=== PATIENT | female | born 1940 | race Caucasian/White ===

== ENCOUNTER 2020-08-28 18:27 | Emergency (ER) | payer MEDICARE, OTHER ==
--- NOTE | 2020-08-28 18:51 | ED ---
General Adult HPI - General Chief complaint: Fall Stated complaint: Shoulder Injury Time Seen by Provider: 08/28/20 18:40 Source: patient, EMS, RN notes reviewed Mode of arrival: EMS Limitations: no limitations - History of Present Illness Initial comments: Patient is a pleasant 80-year-old female presenting to the emergency Department with complaints of left arm injury. Patient states she was putting away groceries when she hit the table and fell onto her left upper arm. Patient had sudden discomfort of her left upper arm near the shoulder. Discomfort is greatly increased with any attempted movement. Patient did have been noted by EMS with improvement of symptoms. Discomfort remains. Patient did have some mild discomfort of her left lateral hip however that has resolved. Patient did stand up and take one step without difficulty. No neck or back pain. No chest pain or dyspnea. No abdominal pain. Patient lightly struck her left side of her head. No blood thinners. Patient did not lose consciousness. No headache. No vomiting. - Related Data Allergies Allergy/AdvReac Type Severity Reaction Status Date / Time No Known Allergies Allergy Verified 08/28/20 19:14 Review of Systems ROS Statement: Those systems with pertinent positive or pertinent negative responses have been documented in the HPI. ROS Other: All systems not noted in ROS Statement are negative. Constitutional: Denies: fever Eyes: Denies: eye pain ENT: Denies: ear pain Respiratory: Denies: cough Cardiovascular: Denies: chest pain Endocrine: Denies: fatigue Gastrointestinal: Denies: abdominal pain Genitourinary: Denies: urgency Musculoskeletal: Reports: as per HPI. Denies: back pain Skin: Denies: rash Neurological: Denies: headache, weakness, confusion Past Medical History Past Surgical History: Back Surgery Smoking Status: Never smoker Past Alcohol Use History: None Reported Past Drug Use History: None Reported General Exam Limitations: no limitations General appearance: alert, in no apparent distress Head exam: Present: atraumatic, normocephalic Eye exam: Present: normal appearance, PERRL, EOMI ENT exam: Present: normal oropharynx Neck exam: Present: normal inspection. Absent: tenderness Respiratory exam: Present: normal lung sounds bilaterally Cardiovascular Exam: Present: regular rate, normal rhythm Expanded Peripheral pulses: 2+: Radial (R), Radial (L), Dorsalis Pedis (R), Dorsalis Pe dis (L) GI/Abdominal exam: Present: soft. Absent: tenderness Extremities exam: Present: tenderness (Mild to moderate tenderness left proximal humerus.), other (Severe discomfort with attempted range of motion of left arm. Distally the extremity is neurovascularly intact. Good strength. Good sensation.) Back exam: Present: normal inspection. Absent: vertebral tenderness Neurological exam: Present: alert. Absent: motor sensory deficit Psychiatric exam: Present: normal affect, normal mood Skin exam: Present: normal color Course Vital Signs 08/28/20 18:44 Temperature 97.8 F Pulse Rate 81 Respiratory 14 Rate Blood Pressure 147/66 O2 Sat by Pulse 98 Oximetry Medical Decision Making - Medical Decision Making Patient evaluated. Patient and family updated. - Radiology Data Radiology results: image reviewed (X-ray left humerus shows comminuted humeral neck fracture. X-ray pelvis shows no acute process) Disposition Clinical Impression: Fracture of neck of humerus Disposition: HOME SELF-CARE Condition: Stable Instructions (If sedation given, give patient instructions): Arm Fracture in Adults (ED) Additional Instructions: Please follow-up with orthopedics in the next day or 2, number provided. Return for uncontrolled pain or swelling, hand problems, worsening symptoms or other concerns. Is patient prescribed a controlled substance at d/c from ED?: No Referrals: Dav Vidal MD [STAFF PHYSICIAN] - 1-2 days Elsa Khoury MD [STAFF PHYSICIAN] - 1-2 days
--- NOTE | 2020-08-28 19:14 | XR ---
EXAMINATION TYPE: XR pelvis AP view DATE OF EXAM: 08/28/2020 COMPARISON: NONE HISTORY: Shoulder pain TECHNIQUE: Single view FINDINGS: Pelvic ring is intact. There is acetabular spurring. The proximal femurs are intact. Sacroi liac joints are intact. IMPRESSION: No acute abnormality of the pelvis. No fracture seen. Acetabular spurring noted. No signi ficant hip joint space narrowing.
--- NOTE | 2020-08-28 19:15 | XR ---
EXAMINATION TYPE: XR humerus LT DATE OF EXAM: 08/28/2020 COMPARISON: NONE HISTORY: Shoulder pain TECHNIQUE: Single view FINDINGS: There is impacted comminuted humeral neck fracture. There is displacement of the fragments up to 1 cm. There is no dislocation at the glenohumeral joint. The elbow joint is not well evaluated. IMPRESSION: Comminuted humeral neck fracture. No dislocation.
[2020-08-28] MEDS ORDERED: HYDROmorphone 1 MG/ML 1 ML SYRINGE IVP STA (19:19)
[2020-08-28] MEDS ORDERED: traMADol 50 MG STARTER PACK 3 TAB BTL PO STA (19:23)
[2020-08-28 20:27] VITALS: BP 120/65; PULSE 89; RESP 20; TEMP 99.1
== END 2020-08-28 20:27 | disposition home or self-care (01) ==
LOC: EC 18:27
DX: S42.212A Unspecified displaced fracture of surgical neck of left humerus, initial encounter for closed fracture (principal); W18.09XA Striking against other object with subsequent fall, initial encounter; Y92.512 Supermarket, store or market as the place of occurrence of the external cause
CPT/HCPCS: 72170; 73060; 99283; 96374; J1170

== ENCOUNTER → 2020-08-31 | Outpatient (CLI) | payer MEDICARE, OTHER ==
[2020-08-31 14:48] LABS: Basophils % (A) 0 %; Eosinophils # (A) 0.1 k/uL (0-0.7); Eosinophils % (A) 1 %; HCT 31.6 % (34.0-46.0); HGB 10.4 gm/dL (11.4-16.0); Lymphocytes # (A) 1.8 k/uL (1.0-4.8); Lymphocytes % (A) 23 %; MCH 29.1 pg (25.0-35.0); MCHC 33.1 g/dL (31.0-37.0); MCV 87.9 fL (80.0-100.0); Mean Platelet Volume 8.1; Monocytes # (A) 0.5 k/uL (0-1.0); Monocytes % (A) 7 %; Neutrophils # (A) 5.3 k/uL (1.3-7.7); Neutrophils % (A) 67 %; Platelet Count 184 k/uL (150-450); RBC 3.59 m/uL (3.80-5.40); RDW 14.5 % (11.5-15.5); WBC 7.9 k/uL (3.8-10.6)
[2020-08-31 14:56] LABS: INR 0.9 (<1.2); Prothrombin Time 9.7 sec (9.0-12.0)
== END | disposition home or self-care (01) ==
LOC: LABPAT 13:05
PROVIDERS: ATTEND Orthopaedic Surgery
DX: Z01.818 Encounter for other preprocedural examination (principal); Z01.812 Encounter for preprocedural laboratory examination; S42.241D 4-part fracture of surgical neck of right humerus, subsequent encounter for fracture with routine healing
CPT/HCPCS: 36415; 80051; 85025; 85610; 87070; 93005

== ENCOUNTER 2020-09-05 13:58 | Inpatient (IN) | payer MEDICARE, OTHER ==
[2020-09-04 08:45] VITALS: BMI 30.7
--- NOTE | 2020-09-04 11:45 | HP ---
HISTORY AND PHYSICAL CHIEF COMPLAINT: Left shoulder pain. HISTORY OF PRESENT ILLNESS: Patient is a 80-year-old, right-hand dominant, retired female who presents with left shoulder pain after an injury on 08/28/2020. She fell getting out of her car getting, going into her house on her left side. Initially, she was seen in the emergency room and placed in a sling. PAST MEDICAL HISTORY: Significant for arthritis. PAST SURGICAL HISTORY: Significant for cataract removal along with lumbar spine surgery. CURRENT MEDICATIONS: Hydrocodone, cyclobenzaprine. She denies drug allergies. FAMILY HISTORY: Negative. SOCIAL HISTORY: Significant for social alcohol use. 16 POINT REVIEW OF SYSTEMS: Otherwise reviewed and is noncontributory. PHYSICAL EXAMINATION: On examination, the patient is approximately 5 foot 2, 168 pounds of mesomorphic habitus. HEENT: Exam is nonfocal. NECK: Supple. Examination of the left shoulder. She is tender about the proximal humerus. She has moderate anterior swelling. She is nontender about the acromioclavicular and sternoclavicular joints. She is nontender about the left elbow and wrist. Her distal neurovascular appears intact in the left upper extremity. X-rays of the left shoulder obtained in the office show displaced 4 part proximal humerus fracture. IMPRESSION: 1. Left displaced 4-part proximal humerus fracture. 2. 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 RECOMMENDATIONS: I talked to the patient at length regarding her condition and along with treatment options. At this point, she opts to proceed with surgery. We will plan to proceed with reverse left total shoulder arthroplasty. Risks and benefits were discussed at length in layman's terms. MMODL / IJN: [id number] /
[~2020-09-05 13:58] MED LIST: ACETAMINOPHEN TAB 500 MG TAB PO ONE; DEXAMETHASONE SOD PHOSPHATE 10 MG/ML 1 ML VIAL IV ONE; HYDROmorphone 0.5 MG/0.5 ML SYRINGE IVP PRN; LIDOCAINE 1% (10MG/ML) FOR IV START INTRADERMA PRN; MELOXICAM 7.5 MG TAB PO ONE; MIDAZOLAM 2 MG/2 ML VIAL IV PRN; ONDANSETRON 4 MG/2 ML VIAL IVP ONE; TRANEXAMIC ACID 1,000 MG in SODIUM CHLORIDE 0.9% 100 ML IVPB ONE
[2020-09-05] MEDS ORDERED: ONDANSETRON 4 MG/2 ML VIAL ONE (14:49)
[2020-09-05] MEDS: LACTATED RINGERS 1,000 ML IV SCH (14:58)
[2020-09-05] MEDS ORDERED: MIDAZOLAM 2 MG/2 ML VIAL IVP ONE (15:05)
--- NOTE | 2020-09-05 15:23 | P.ANPRN ---
Procedure Note - Anesthesia - Nerve Block Performed Left Interscalene Single Time Out Performed: Yes (1504) Date of Procedure: 09/05/20 Procedure Start Time: 15:05 Procedure Stop Time: 15:12 Location of Patient: PreOp Indication: Acute Post-Operative Pain, Analgesia, Requested by Surgeon Specifically requested for management of pain by : Dav Vidal Sedation Type: Sedate with meaningful contact maintained Preparation: Sterile Prep Position: Supine Catheter: None Needle Types: Pajunk Needle Gauge: 20 Ultrasound used to visualize needle placement: Yes Ultrasound used to observe medication spread: Yes Injectate: 0.5% Ropivacaine (see comment for volume) (20 mL ropivacaine 0.5% and 10 mg decadron) Blood Aspirated: No Pain Paresthesia on Injection Noted: No Resistance on Injection: Normal Image Stored and Saved: Yes Events: Uneventful and Well Tolerated
[2020-09-05] MEDS ORDERED: PROPOFOL 10 MG/ML 20 ML VIAL IV ONE ×2 (15:37)
[2020-09-05] MEDS ORDERED: SODIUM CHLORIDE 0.9% 100 ML BAG ONE ×2 (15:37)
[2020-09-05] MEDS ORDERED: LIDOCAINE 1% INJ 10MG/ML (20 ML MDV) ONE ×2 (15:37)
[2020-09-05] MEDS ORDERED: ROPIVACAINE 5 MG/ML 30 ML VIAL ONE ×2 (15:37)
[2020-09-05] MEDS ORDERED: ROCURONIUM 10 MG/ML (10 ML VIAL) IV ONE ×2 (15:37)
[2020-09-05] MEDS ORDERED: TRANEXAMIC ACID 1,000 MG/10 ML VIAL ONE ×2 (15:37)
[2020-09-05] MEDS ORDERED: fentaNYL (PF) 50 MCG/ML 2 ML AMP ONE ×2 (15:37)
[2020-09-05] MEDS ORDERED: DEXAMETHASONE SOD PHOSPHATE 10 MG/ML 1 ML VIAL ONE ×2 (15:37)
[2020-09-05] MEDS ORDERED: NEOSTIGMINE 1 MG/ML 10 ML VIAL ONE ×2 (15:37)
[2020-09-05] MEDS ORDERED: SUCCINYLCHOLINE CHLORIDE 100 MG/5 ML SYR IV ONE ×2 (15:37)
[2020-09-05] MEDS ORDERED: GLYCOPYRROLATE 0.2 MG/ML 2 ML VIAL ONE ×2 (15:37)
[2020-09-05] MEDS ORDERED: ONDANSETRON 4 MG/2 ML VIAL IVP PRN (17:35)
[2020-09-05] MEDS ORDERED: HYDROmorphone 0.5 MG/0.5 ML SYRINGE IVP PRN (17:35)
[2020-09-05] MEDS ORDERED: HYDROcodone/APAP 5-325MG 1 EACH TAB PO PRN (17:35)
[2020-09-05] MEDS ORDERED: ACETAMINOPHEN TAB 325 MG TAB PO PRN (17:37)
--- NOTE | 2020-09-05 18:03 | P.OP ---
Date of Procedure: 09/05/20 Preoperative Diagnosis: Displaced left 4 part proximal humerus fracture Postoperative Diagnosis: Same Procedure(s) Performed: Left reverse total shoulder arthroplastycemented Implants: Depuy Delta Xtend size 10 cemented long humeral stem with size 1 epiphysis, 38+3 articular surface, 38 mm glenosphere with +10 baseplate. Anesthesia: allyson BROWN Surgeon: Dav Vidal Instructor Psychiatric Aide #1: Devan Parekh Estimated Blood Loss (ml): 100 Pathology: other (Humeral head) Condition: stable Disposition: PACU Indications for Procedure: The patient is a 80-year-old female who presents after falling injuring her left shoulder. Upon evaluation she was noted have a displaced four-part proximal humerus fracture. A discussion of the risks and benefits of operative intervention versus conservative measures was made patient and her family. Operative procedure with surgery. Operative options were discussed including open reduction and internal fixation versus hemiarthroplasty versus reversed total shoulder arthroplasty. The opted to proceed with reverse total shoulder arthroplasty. Specific risks of surgery to include infection, neurovascular injury, development of blood clots, possible instability, possible need for subsequent procedures was discussed. Informed consent was obtained. Operative Findings: As below Description of Procedure: The patient was brought to the operating room, and after induction of general anesthesia was placed in a beachchair position. The bony prominences were appropriately padded. The left upper extremity was prepped and draped in normal fashion. A deltopectoral incision was then made starting just lateral to the coracoid process extending approximately 12 cm. Skin was incised sharply. Subcu tissues were divided bluntly. Electrocautery was used for hemostasis. The cephalic vein was identified and retracted gently laterally with the deltoid. Subdeltoid adhesions were bluntly dissected. A self-retaining retractor was placed. The upper one third of the pectoralis major was released to facilitate exposure. The clavipectoral fascia was opened and the retractor was placed under that. The biceps was identified and tenotomized and allowed to retract distally. The greater and lesser tuberosities were with an osteotome. The head was extracted. The tuberosities were tagged with #2 Ethibond suture. Attention was then paid towards the glenoid. I planned on a glenosphere being slightly inferior and tilting inferiorly. A guidepin was inserted. The glenoid was then reamed down to bleeding bony surface. The central peg hole was drilled. The standard +10 baseplate was inserted. The superior, inferior, and posterior locking screws were placed of the appropriate length. Good purchase obtained. I felt there is adequate fixation at this point. The 38 mm glenosphere was inserted over guidewire and was fully seated. Attention was then paid towards preparing the proximal humerus. The humeral canal was hand reamed to 8 mm. The alignment jig was attached the proximal humerus planning approximately 20 of retroversion. The trial size 8 long humeral stem was placed at the estimated height. A 30 mm +3 articular surface was placed. The shoulder was gently reduced. It was taken through range of motion. I felt that adequate episcopal of soft tissue tension judging off the conjoined tendon. I was stable in flexion and extension with internal and external rotation. The shoulder was gently dislocated and trial components were removed. The final humeral stem was inserted approximately 20 of retroversion again at the estimated appropriate height. After this had sufficiently hardened, trial reduction was again obtained with a 38+3 metaglene. The shoulder was again taken through range of motion and was felt to be stable in flexion and extension with internal and external rotation. Again I felt there is adequate episcopal of soft tissue tension. The shoulder was dislocated and the trial component was removed. The final 38+3 articular surface was placed and was fully seated. The shoulder again gently reduced. Pulsatile lavage was utilized. The tuberosities were repaired to each other with #2 Ethibond suture. I didn't have much drainage at this point therefore a deep drain was not placed. The subcutaneous tissues were reapproximated interrupted 2-0 Vicryl sutures. The skin was reapproximated with 3-0 subcuticular Prolene suture. Steri-Strips were applied. A sterile dressing was applied in addition to a sling. The patient was then awoken from general anesthesia and transferred to recovery room in fair condition. Blood loss was estimated at 100 mL. No complications were incurred. Sponge and needle counts were correct in the case.
[2020-09-05] MEDS ORDERED: LACTATED RINGERS 1,000 ML IV ONE (18:48)
--- NOTE | 2020-09-05 19:36 | XR ---
EXAMINATION TYPE: XR shoulder limited LT DATE OF EXAM: 09/05/2020 CLINICAL HISTORY: Postoperative left shoulder. TECHNIQUE: Single AP view of the left shoulder. COMPARISON: 08/28/2020 FINDINGS: There are interval postsurgical changes of left reverse shoulder arthroplasty for treatment of prior proximal humeral fracture. No evidence of intermediate to hardware complication on this limited singl e view. IMPRESSION: As above.
--- NOTE | 2020-09-06 00:34 | P.CONS ---
History of Present Illness - Reason for Consult Consult date: 09/05/20 medical management Requesting physician: Dav Vidal - Chief Complaint left humerous fracture - History of Present Illness 80 year old female with no significant past medical history she sustained accidental mechanical fall in her Garage about a week ago, resulting in left arm fracture. she is scheduled today for left total shoulder arthroplasty she tolerated procedure well, denies any chest pain or trouble breathing, denies any fever chills, denies any nausea or vomiting, she tolerated PO intake. she is reporting some numbness over her left hand since surgery, however it is clearing now, she is able to move her fingers in the left hand but unable to lift her hand. pain is well controlled Review of Systems Pertinent positives as noted in HPI. All other systems were reviewed and are negative Past Medical History Past Medical History: Osteoarthritis (OA) History of Any Multi-Drug Resistant Organisms: None Reported Past Surgical History: Back Surgery Past Anesthesia/Blood Transfusion Reactions: No Reported Reaction Past Psychological History: No Psychological Hx Reported Smoking Status: Former smoker Past Alcohol Use History: None Reported Additional Past Alcohol Use History / Comment(s): Quit smoking 25 yrs ago, smoked 4 -5 cigarettes daily, on and off for 10 yrs. Past Drug Use History: None Reported - Past Family History Sister(s) Family Medical History: Cancer Additional Family Medical History / Comment(s): Cervical Cancer. Medications and Allergies Home Medications Medication Instructions Recorded Confirmed Type Cyclobenzaprine HCl 5 mg PO TID PRN 09/04/20 09/04/20 History HYDROcodone/APAP 5-325MG [[place] 1 tab PO Q4HR PRN 09/04/20 09/04/20 History 5-325] Allergies Allergy/AdvReac Type Severity Reaction Status Date / Time No Known Allergies Allergy Verified 09/05/20 14:21 Physical Exam Vitals: Vital Signs Temp Pulse Pulse Resp BP Pulse Ox 09/05/20 23:55 18 09/05/20 20:00 89 18 09/05/20 19:10 98.0 F 89 120/68 93 L 09/05/20 18:46 87 18 123/64 93 L 09/05/20 18:30 83 16 124/62 96 09/05/20 18:12 93 18 124/61 93 L 09/05/20 17:55 97 F L 85 14 129/67 97 09/05/20 15:16 88 16 113/58 100 09/05/20 14:23 97.9 F 97 16 126/71 100 Intake and Output 09/05/20 09/05/20 09/06/20 14:59 22:59 06:59 Intake Total 500 550 Output Total 350 Balance 500 200 Intake: IV 500 550 Output: Urine 250 Estimated Blood Loss 100 Other: Voiding Method Toilet Toilet # Voids 2 Weight 79.7 kg Constitutional: No acute distress, conversant, pleasant Eyes: Anicteric sclerae, moist conjunctiva, Pupils equal round reactive to light ENMT: NC/AT Oropharynx clear, no erythema, or exudates Neck: Supple, FROM, no masses, or JVD No carotid bruits No thyromegaly Lungs: Clear to auscultation Clear to percussion Normal respiratory effort, no accessory muscle use Cardiovascular: Heart regular in rate and rhythm, No murmurs, gallops, or rubs No peripheral edema Abdominal: Soft Nontender, no guarding, rebound or rigidity Abdomen moving with respiration Normoactive bowel sounds No hepatomegaly, No splenomegaly No palpable mass No abdominal wall hernia noted Skin: Normal temperature, tone, texture, turgor No induration No subcutaneous nodules No rash, lesions No ulcers Extremities: left upper extremity in surgical dressing over left shoulder, looks dry intact and clean, her exposed part of the left forearm and hand has purple disocloration , warm to the touch, patient able to move her fingers but unable to lift her hand, or move at the elbow or shoulder, capillary refill immediate, No digital cyanosis No clubbing Pedal pulses intact and symmetrical Radial pulses intact and symmetrical No calf tenderness Psychiatric: Alert and oriented to person, place and time Appropriate affect fair judgement Neuro Muscles Strength 4/5 in right upper extremity and bilateral lower extremity Sensation to light touch grossly present throughout Cranial nerves II-XII grossly intact No focal sensory deficits Lymphatics: no palpable cervical or supraclavicular , or inguinal lymph nodes Assessment and Plan Assessment: left total shoulder arthroplasty 2/2 accidental humerus fracture 2/2 falling pain control and DVT ppx per louver door assembler notified regarding numbness in patient hand and unable to move her left UE. RN indicated that patient just came out of surgery and that she had nerve block monitor vital sings check CBC and CMP in AM Full code Thank you for allowing us to participate in the care of this patient. Do not hesitate to contact us with questions. Someone can be reached from the [facility] hospitalist group at all hours of the day at [phone].
[2020-09-06] MEDS: LACTATED RINGERS 1,000 ML IV SCH (06:56)
[2020-09-06] MEDS: ASPIRIN 325 MG TAB PO SCH (07:12)
[2020-09-06 07:14] LABS: Basophils % (A) 0 %; Eosinophils % (A) 0 %; HCT 26.9 % (34.0-46.0); Hypochromasia Slight; Lymphocytes # (A) 0.9 k/uL (1.0-4.8); Lymphocytes % (A) 11 %; MCH 28.9 pg (25.0-35.0); MCHC 31.9 g/dL (31.0-37.0); MCV 90.5 fL (80.0-100.0); Mean Platelet Volume 7.7; Monocytes # (A) 0.4 k/uL (0-1.0); Monocytes % (A) 4 %; Neutrophils # (A) 7.5 k/uL (1.3-7.7); Neutrophils % (A) 85 %; Platelet Count 232 k/uL (150-450); RBC 2.98 m/uL (3.80-5.40); RDW 15.6 % (11.5-15.5); WBC 8.9 k/uL (3.8-10.6)
[2020-09-06 07:17] LABS: HGB 8.6 gm/dL (11.4-16.0)
[2020-09-06] MEDS: HYDROcodone/APAP 5-325MG 1 EACH TAB PO PRN ×3 (08:57→20:18)
[2020-09-06 09:22] LABS: African American GFR (CKD) 96.2 (60.0-200.0); Albumin 3.6 g/dL (3.80-4.90); Albumin/Globulin Ratio 2.12 (1.60-3.17); Anion Gap 8.4 mmol/L (4.00-12.00); BUN/Creat Ratio 25.71 Ratio (12.00-20.00); Calcium 8.7 mg/dL (8.7-10.3); Carbon Dioxide 25.6 mmol/L (21.6-31.8); Globulin 1.7 g/dL (1.6-3.3); Potassium 4.5 mmol/L (3.5-5.5); Total Bilirubin 0.4 mg/dL (0.3-1.2); Total Protein 5.3 g/dL (6.2-8.2)
--- NOTE | 2020-09-06 10:22 | P.PN ---
Subjective Progress Note Date: 09/06/20 Patient is doing well today. Pain is well controlled. Objective - Vital Signs Vital signs: Vital Signs Temp 98.0 F 09/06/20 07:00 Pulse 90 09/06/20 07:00 Resp 17 09/06/20 07:00 BP 118/72 09/06/20 07:00 Pulse Ox 94 L 09/06/20 07:00 Intake & Output 09/05/20 09/06/20 09/06/20 18:59 06:59 18:59 Intake Total 1050 Output Total 100 250 Balance 950 -250 Weight 79.7 kg Intake: IV 1050 Output: Urine 250 Estimated Blood Loss 100 Other: Voiding Method Toilet # Voids 1 - Exam General: The patient is awake and alert, in no distress Eye: there is normal conjunctiva bilaterally. Neck: The neck is supple, there is no JVD. Cardiovascular: Normal S1-S2, no S3-S4, no murmurs. Respiratory: Lungs clear to auscultation bilaterally Gastrointestinal: Abdomen is soft, nontender Musculoskeletal: There is no pedal edema. Left arm a large sliding Neurological:. Speech is normal. Skin: Skin is warm and dry - Labs CBC & Chem 7: 09/06/20 06:17 09/06/20 06:17 Labs: Abnormal Lab Results - Last 24 Hours (Table) 09/06/20 09/06/20 Range/Units 06:17 06:17 RBC 2.98 L (3.80-5.40) m/uL Hgb 8.6 L D (11.4-16.0) gm/dL Hct 26.9 L (34.0-46.0) % RDW 15.6 H (11.5-15.5) % Lymphocytes # 0.9 L (1.0-4.8) k/uL BUN/Creatinine Ratio 25.71 H (12.00-20.00) Ratio Glucose 126 H (70-110) mg/dL Total Protein 5.3 L (6.2-8.2) g/dL Albumin 3.60 L (3.80-4.90) g/dL Assessment and Plan Assessment: This is a 80-year-old female with no significant past medical history currently admitted to the hospital for further management of her medical problems noted below: left total shoulder arthroplasty 2/2 accidental humerus fracture 2/2 falling pain control and DVT ppx per orthopedic Today, I reviewed her lab work results. Patient will need a repeat CBC in the next 5-7 days. May require further workup for worsening anemia as an outpatient
--- NOTE | 2020-09-06 11:06 | P.PN ---
Subjective Progress Note Date: 09/06/20 Principal diagnosis: Status post reverse left total shoulder arthroplasty cemented Patient was evaluated today at bedside, she is resting comfortably. She's been up ambulating to the bathroom. Pain is controlled. She's utilizing the arm sling. She denies any headaches, lightheadedness, chest pain, shortness of breath, fever or chills Objective - Vital Signs Vital signs: Vital Signs Temp 98.0 F 09/06/20 07:00 Pulse 90 09/06/20 07:00 Resp 17 09/06/20 07:00 BP 118/72 09/06/20 07:00 Pulse Ox 94 L 09/06/20 07:00 Intake & Output 09/05/20 09/06/20 09/06/20 18:59 06:59 18:59 Intake Total 1050 Output Total 100 250 Balance 950 -250 Weight 79.7 kg Intake: IV 1050 Output: Urine 250 Estimated Blood Loss 100 Other: Voiding Method Toilet # Voids 1 - Exam Left upper extremity: Postoperative bandages in good position and condition, no active drainage. Bruising or ecchymosis noted throughout the upper extremity. Sensory exam to light touch throughout the extremities intact. Flexion and extension are intact at the elbow, hand and wrist. Radial pulses 2+ - Labs CBC & Chem 7: 09/06/20 06:17 09/06/20 06:17 Labs: Abnormal Lab Results - Last 24 Hours (Table) 09/06/20 09/06/20 Range/Units 06:17 06:17 RBC 2.98 L (3.80-5.40) m/uL Hgb 8.6 L D (11.4-16.0) gm/dL Hct 26.9 L (34.0-46.0) % RDW 15.6 H (11.5-15.5) % Lymphocytes # 0.9 L (1.0-4.8) k/uL BUN/Creatinine Ratio 25.71 H (12.00-20.00) Ratio Glucose 126 H (70-110) mg/dL Total Protein 5.3 L (6.2-8.2) g/dL Albumin 3.60 L (3.80-4.90) g/dL Assessment and Plan Assessment: Status post left reverse total shoulder arthroplasty cemented Acute blood loss anemia, expected surgical outcome Plan: Pain control, continue current medication DVT prophylaxis, continue aspirin 325 mg daily Continue use of arm sling We'll check CBC later this afternoon, possible transfusion if below 8 Will begin ferrous sulfate 325 mg twice a day Medical recommendations Plan for discharge home tomorrow Time with Patient: Less than 30
[2020-09-06 14:40] VITALS: RESP 18
[2020-09-07] MEDS: HYDROcodone/APAP 5-325MG 1 EACH TAB PO PRN ×2 (05:34→13:50)
[2020-09-07] MEDS: LACTATED RINGERS 1,000 ML IV SCH (06:21)
[2020-09-07 08:28] VITALS: BP 133/80; PULSE 84; TEMP 98.1
[2020-09-07] MEDS: ASPIRIN 325 MG TAB PO SCH (08:52)
[2020-09-07 08:55] LABS: Basophils % (A) 0 %; Eosinophils # (A) 0.1 k/uL (0-0.7); Eosinophils % (A) 1 %; HCT 27.1 % (34.0-46.0); HGB 8.6 gm/dL (11.4-16.0); Hypochromasia Moderate; Lymphocytes % (A) 25 %; MCH 28.8 pg (25.0-35.0); MCHC 31.5 g/dL (31.0-37.0); MCV 91.3 fL (80.0-100.0); Monocytes # (A) 0.5 k/uL (0-1.0); Monocytes % (A) 6 %; Neutrophils # (A) 5.4 k/uL (1.3-7.7); Neutrophils % (A) 66 %; Platelet Count 244 k/uL (150-450); RBC 2.97 m/uL (3.80-5.40); RDW 15.7 % (11.5-15.5); WBC 8.1 k/uL (3.8-10.6)
--- NOTE | 2020-09-07 10:53 | P.PN ---
Subjective Progress Note Date: 09/07/20 Principal diagnosis: Status post reverse left total shoulder arthroplasty cemented Patient was evaluated today at bedside, she is resting comfortably. She's been up ambulating to the bathroom. Pain is controlled. She's utilizing the arm sling. She denies any headaches, lightheadedness, chest pain, shortness of breath, fever or chills Objective - Vital Signs Vital signs: Vital Signs Temp 98.1 F 09/07/20 07:00 Pulse 84 09/07/20 07:00 Resp 18 09/07/20 07:00 BP 133/80 09/07/20 07:00 Pulse Ox 93 L 09/07/20 07:00 Intake & Output 09/06/20 09/07/20 09/07/20 18:59 06:59 18:59 Other: Voiding Method Toilet # Voids 3 1 - Exam Left upper extremity: Incision is clean, dry and intact. Bruising or ecchymosis noted throughout the upper extremity. Sensory exam to light touch throughout the extremities intact. Flexion and extension are intact at the elbow, hand and wrist. Radial pulses 2+ - Labs CBC & Chem 7: 09/07/20 08:21 09/06/20 06:17 Labs: Abnormal Lab Results - Last 24 Hours (Table) 09/07/20 Range/Units 08: RBC 2.97 L (3.80-5.40) m/uL Hgb 8.6 L (11.4-16.0) gm/dL Hct 27.1 L (34.0-46.0) % RDW 15.7 H (11.5-15.5) % Assessment and Plan Assessment: Status post left reverse total shoulder arthroplasty cemented Acute blood loss anemia, expected surgical outcome Plan: Pain control, plan for discharge home on [place] 5 mg/325 mg DVT prophylaxis, plan for discharge on aspirin 325 mg daily Continue use of arm sling Hemoglobin has remained stable, we'll discharge home on ferrous sulfate 325 mg twice a day Medical recommendations Plan for discharge home today Time with Patient: Less than 30
--- NOTE | 2020-09-07 10:57 | P.DS ---
Providers Date of admission: 09/05/20 13:58 Expected date of discharge: 09/07/20 Attending physician: Dav Vidal Primary care physician: Stated None Hospital Course: Date of admission: 09/05/2020 Date of discharge: 09/07/2020 Admission diagnosis: Status post reversed left total shoulder arthroplasty Discharge diagnosis: Same Attending physician: Dr. Vidal Surgical procedures: Reverse left total shoulder arthroplasty Brief history: Patient is a 80-year-old female with a history of a recent fall and injury to her left shoulder that resulted in a 4 part displaced proximal humerus fracture on the left. She was evaluated in the outpatient setting by Dr. Vidal, it was determined surgical fixation would be the best course of action, she was scheduled for reverse left total shoulder arthroplasty Hospital course: Details of patient's surgery can be found in operative report. Patient tolerated the procedure well and was subsequently transported to orthopedic floor. Patient's orthopeidc and medical care was provided daily. Patient had daily laboratory tests performed for evaluation of overall blood counts. Patient had daily physical therapy to include strengthening range of motion as well as education with walker ambulation. Patient was treated with Aspirin for their postoperative DVT prophylaxis during their inpatient stay. Patient was noted to have a relatively uneventful postoperative course. Patient reported satisfactory pain control with oral pain medications by postoperative day 0. Patient showed satisfactory progress with physical therapy. Patient moved steadily through the program and had no difficulty meeting the goals by postoperative day 2. Given patient's otherwise satisfactory course and having met physical therapy goals, plan is to discharge patient home on postoperative day 2. Discharge condition/disposition: Patient will be discharged home in stable condition. Discharge medications: Instructions are given on resumption of patient's normal daily medications per primary care recommendation, in addition patient will be prescribed [place] 5 mg/325 mg, Colace 100 mg, aspirin 325 mg, ferrous sulfate 325 mg. Discharge instructions: 1. Wound care and infection precautions, keep incision dry and covered while showering, no lotions, creams, moisturizers. No soaking, tubs, pools, hottubs. Do not scrub over the incision. 2. Utilize arm sling 3. Ice and elevate when necessary. Do not exceed 20 minutes per hour with ice pack. 4. Utilize compression sleeve until seen at first follow up appointment. 7. Pain meds and anticoagulants per prescription. 8. Pain medication has potential to cause constipation. Increase oral fluid and fiber intake. Contact primary care provider if you have not had a bowel movement within 48 hours after discharge 9. No anti-inflammatory medication until discussed at first post operative visit, this including Motrin, Aleve, Mobic, Diclofenac. 10. Follow up in office at 2 weeks postop with Eliseo Parekh PA-C 11. Follow up with your primary care doctor 7-10 days after discharge. 12. Contact [facility] with any questions, . Procedures: Reverse total shoulder arthroplasty Plan - Discharge Summary Discharge Rx Participant: Yes New Discharge Prescriptions: New Aspirin 325 mg PO DAILY #30 tab Docusate [Colace] 100 mg PO DAILY #30 capsule Ferrous Sulfate [Feosol] 325 mg PO BID #60 tab Hydrocodone/Acetaminophen [[place] 5-325] 1 - 2 each PO Q6HR PRN #42 tab PRN Reason: Pain No Action HYDROcodone/APAP 5-325MG [[place] 5-325] 1 tab PO Q4HR PRN PRN Reason: Pain Cyclobenzaprine HCl 5 mg PO TID PRN PRN Reason: Pain or Spasm Discharge Medication List Cyclobenzaprine HCl 5 mg PO TID PRN 09/04/20 [History] HYDROcodone/APAP 5-325MG [[place] 5-325] 1 tab PO Q4HR PRN 09/04/20 [History] Aspirin 325 mg PO DAILY #30 tab 09/07/20 [Rx] Docusate [Colace] 100 mg PO DAILY #30 capsule 09/07/20 [Rx] Ferrous Sulfate [Feosol] 325 mg PO BID #60 tab 09/07/20 [Rx] Hydrocodone/Acetaminophen [[place] 5-325] 1 - 2 each PO Q6HR PRN #42 tab 09/07/20 [Rx] Follow up Appointment(s)/Referral(s): [facility], [NON-STAFF] - As Needed Devan Parekh PAC [PHYSICIAN STATIONS SUPERINTENDENT] - 09/20/20 3:10 pm Activity/Diet/Wound Care/Special Instructions: Discharge instructions: 1. Resume home medications 2. Pain medication as needed 3. Aspirin 325 mg daily DVT prophylaxis 4. Keep incision dry and covered while showering 5. Utilize arm sling 6. Ice the shoulder often 7. Plan for follow-up at [facility] in 2 weeks Discharge Disposition: HOME WITH HOME HEALTH SERVICES
--- NOTE | 2020-09-08 10:45 | CDI ---
TDocumentation Clarification Form Date: 09/08/20 From: Ernestina Desai Phone: If you have a question about this query, please contact Savannah Recinos Tool Design Drafter at [phone] between 8am and 5pm. Admit Date: 09/05/20 Discharge Date:09/07/20 Patient Name: Shey Heredia Visit Number: [id number] ATTENTION: The Clinical Documentation Specialists (CDI) and [facility] Coding Staff appreciate your assistance in clarifying documentation. Please respond to the clarification below the line at the bottom and electronically sign. The CDI & [facility] Coding staff will review the response and follow-up if needed. Please note: Queries are made part of the Legal Health Record. If you have any questions, please contact the author of this message via ITS. Dear Dr. Vidal Patient has been diagnosed with a 4 part fracture of the proximal humerus. History/Risk Factors: Fall at home with injury, osteoporosis Clinical Indications: Left shoulder pain, moderate swelling X-Ray Results: X-ray in the office showed displaced 4 part proximal humerus fracture Treatment: Left reverse total shoulder arthroplasty In your professional opinion, please specify the following: Etiology of fracture: Traumatic Pathological (specify cause): Osteoporosis Other (please specify): Unable to determine traumatic MTDD
== END 2020-09-07 13:59 | disposition home health service (06) | DRG 483 ==
LOC: 2ORMAIN 13:58 → 4SSUR 17:59
PROVIDERS: ADMIT Orthopaedic Surgery; ATTEND Orthopaedic Surgery
PROC: 0RRK00Z Replacement of Left Shoulder Joint with Reverse Ball and Socket Synthetic Substitute, Open Approach (ICD-10-PCS; principal; 2020-09-05 15:35)
DX: S42.242A 4-part fracture of surgical neck of left humerus, initial encounter for closed fracture (principal); D62 Acute posthemorrhagic anemia; M19.90 Unspecified osteoarthritis, unspecified site; Z87.891 Personal history of nicotine dependence; Z98.49 Cataract extraction status, unspecified eye; Z98.890 Other specified postprocedural states; Z87.39 Personal history of other diseases of the musculoskeletal system and connective tissue; Z80.49 Family history of malignant neoplasm of other genital organs; V48.4XXA Person boarding or alighting a car injured in noncollision transport accident, initial encounter; Y92.015 Private garage of single-family (private) house as the place of occurrence of the external cause
CPT/HCPCS: 64415; 76942; 80053; 85025; 88300

== ENCOUNTER 2024-02-14 20:25 | Observation (INO) | payer MEDICARE, OTHER ==
[2024-02-14] MEDS: ACETAMINOPHEN TAB 500 MG TAB PO STA (20:42)
[2024-02-14] MEDS: SODIUM CHLORIDE 0.9% 1,000 ML IV STA ×2 (20:44→23:11)
[2024-02-14 20:51] LABS: Basophils % (A) 0 %; Eosinophils # (A) 0.1 k/uL (0-0.7); Eosinophils % (A) 2 %; HCT 36.4 % (34.0-46.0); HGB 12.3 gm/dL (11.4-16.0); Lymphocytes % (A) 13 %; MCH 31.2 pg (25.0-35.0); MCHC 33.7 g/dL (31.0-37.0); MCV 92.4 fL (80.0-100.0); Monocytes # (A) 0.5 k/uL (0-1.0); Monocytes % (A) 6 %; Neutrophils # (A) 6.4 k/uL (1.3-7.7); Neutrophils % (A) 79 %; Platelet Count 144 k/uL (150-450); RBC 3.93 m/uL (3.80-5.40); RDW 13.4 % (11.5-15.5); WBC 8.1 k/uL (3.8-10.6)
[2024-02-14 20:59] LABS: ALT 24 U/L (4-34); AST 23 U/L (14-36); African American GFR (CKD) >90 (>60 ml/min/1.73 sqM); Albumin 4.1 g/dL (3.5-5.0); Alkaline Phosphatase 80 U/L (38-126); Anion Gap 8 mmol/L; Blood Urea Nitrogen 15 mg/dL (7-17); Calcium 8.6 mg/dL (8.4-10.2); Carbon Dioxide 23 mmol/L (22-30); Chloride 109 mmol/L (98-107); Glucose 118 mg/dL (74-99); Magnesium 1.7 mg/dL (1.6-2.3); Non-African American GFR(CKD) 87 (>60 ml/min/1.73 sqM); Sodium 140 mmol/L (137-145); Total Bilirubin 0.5 mg/dL (0.2-1.3); Total Protein 7.1 g/dL (6.3-8.2)
[2024-02-14] MEDS: IBUPROFEN 800 MG TAB PO STA (21:01)
[2024-02-14 21:28] LABS: Partial Thromboplastin Time 24.6 sec (22.0-30.0); Prothrombin Time 10.7 sec (10.0-12.5)
--- NOTE | 2024-02-14 21:37 | ED ---
General Adult HPI - General Chief complaint: Weakness Stated complaint: Weakness and numbness in lower extremities Time Seen by Provider: 02/14/24 20:25 Source: patient, EMS, RN notes reviewed, old records reviewed Mode of arrival: EMS - History of Present Illness Initial comments: Patient is an 83-year-old female who presents emergency department complaining of weakness. States she woke up today with weakness. Also has had a cough for the last few days. Was taking a nap and woke up this afternoon after laying down at approximately 1 PM. She has been unable to walk due to weakness in bilateral legs since that time. Denies any focal deficits. Can still move the legs but just feels weak. No unilateral deficits. No sensory deficits. Productive cough. Patient is also febrile. Presents for further evaluation at this time. - Related Data Home Medications Medication Instructions Recorded Confirmed Cyclobenzaprine HCl 5 mg PO TID PRN 09/04/20 09/04/20 HYDROcodone/APAP 5-325MG [[place] 1 tab PO Q4HR PRN 09/04/20 09/04/20 5-325] Previous Rx's Medication Instructions Recorded Aspirin 325 mg PO DAILY #30 tab 09/07/20 Docusate [Colace] 100 mg PO DAILY #30 capsule 09/07/20 Ferrous Sulfate [Feosol] 325 mg PO BID #60 tab 09/07/20 Hydrocodone/Acetaminophen [[place] 1 - 2 each PO Q6HR PRN #42 tab 09/07/20 5-325] Allergies Allergy/AdvReac Type Severity Reaction Status Date / Time No Known Allergies Allergy Verified 09/05/20 14:21 Review of Systems ROS Statement: Those systems with pertinent positive or pertinent negative responses have been documented in the HPI. Review of Systems: CONST: Endorses fever EYES: Denies blurry vision ENT: Endorses nasal congestion C/V: Denies Chest pain RESP: Endorses cough GI: Denies abdominal pain : Denies dysuria SKIN: Denies rash. MSK: Denies joint pain. NEURO: Denies headache ROS Other: All systems not noted in ROS Statement are negative. Past Medical History Past Medical History: Osteoarthritis (OA) History of Any Multi-Drug Resistant Organisms: None Reported Past Surgical History: Back Surgery Past Anesthesia/Blood Transfusion Reactions: No Reported Reaction Past Psychological History: No Psychological Hx Reported Smoking Status: Former smoker Past Alcohol Use History: None Reported Past Drug Use History: None Reported - Past Family History Sister(s) Family Medical History: Cancer Additional Family Medical History / Comment(s): Cervical Cancer. General Exam - General Exam Comments Initial Comments: General: Appears in no acute distress. Febrile. HEAD: Normal with no signs of head trauma. EYES: PERRLA, EOMI, conjunctiva normal, no discharge. ENT: Hearing grossly intact, normal oropharynx. RESPIRATORY: Mildly coarse breath sounds bilaterally. No significant hypoxia. No significant increased work of breathing. C/V: Tachycardic.. S1 and S2 auscultated, no edema, peripheral pulses 2+ and intact throughout ABD: Abd is soft, nontender, nondistended EXT: Normal range of motion, no obvious deformity SKIN: No rashes or lesions observed on exposed skin. NEURO: Alert and oriented x 4. Cranial nerves II-XII intact. No focal sensory or strength deficits. Symmetrical lower extremity weakness. No focal deficits. NIH is 0. GCS of 15. Course Vital Signs 02/14/24 02/14/24 02/14/24 20:29 21:00 21:35 Temperature 102.1 F H 99.2 F Pulse Rate 103 H 92 Respiratory 19 19 Rate Blood Pressure 152/79 133/67 O2 Sat by Pulse 93 L 95 Oximetry Medical Decision Making - Medical Decision Making Was pt. sent in by a medical professional or institution (ROMELIA Cardenas, SENIOR DATA INTEGRATION DEVELOPER, urgent care, hospital, or skilled nursing...) When possible be specific @ -No Did you speak to anyone other than the patient for history (EMS, parent, family, police, friend...)? What history was obtained from this source @ -No Did you review nursing and triage notes (agree or disagree)? Why? @ -I reviewed and agree with nursing and triage notes Were old charts reviewed (outside hosp., previous admission, EMS record, old EKG, old radiological studies, urgent care reports/EKG's, skilled nursing records)? Report findings @ -Charts reviewed Differential Diagnosis (chest pain, altered mental status, abdominal pain women, abdominal pain men, vaginal bleeding, weakness, fever, dyspnea, syncope, headache, dizziness, GI bleed, back pain, seizure, CVA, palpatations, mental health, musculoskeletal)? @ -Differential Weakness: Hypoglycemia, shock, sepsis, hyponatremia, anemia, infection, MD, ETOH, adverse medicine reaction, overdose, stroke, this is not meant to be an all-inclusive list. EKG interpreted by me (3pts min.). @ -As above X-rays interpreted by me (1pt min.). @ -Chest x-ray shows no signs of acute cardiopulmonary process. CT interpreted by me (1pt min.). @ -None done U/S interpreted by me (1pt. min.). @ -None done What testing was considered but not performed or refused? (CT, X-rays, U/S, labs)? Why? @ -None What meds were considered but not given or refused? Why? @ -None Did you discuss the management of the patient with other professionals (professionals i.e. , PA, SENIOR DATA INTEGRATION DEVELOPER, lab, RT, psych nurse, social science analyst, local tanker truck driver, teacher, aadc plans staff officer, immigration case manager)? Give summary @ -I discussed the case with the admitting team, [facility]. Was smoking cessation discussed for >3mins.? @ -No Was critical care preformed (if so, how long)? @ -No Were there social determinants of health that impacted care today? How? (Homelessness, low income, unemployed, alcoholism, drug addiction, transportation, low edu. Level, literacy, decrease access to med. care, alf, rehab)? @ -No Was there de-escalation of care discussed even if they declined (Discuss DNR or withdrawal of care, Hospice)? DNR status @ -No What co-morbidities impacted this encounter? (DM, HTN, Smoking, COPD, CAD, Cancer, CVA, ARF, Chemo, Hep., AIDS, mental health diagnosis, sleep apnea, morbid obesity)? @ -None Was patient admitted / discharged? Hospital course, mention meds given and route, prescriptions, significant lab abnormalities, going to OR and other pertinent info. @ -Based on the patient's presentation and physical exam, presents with weakness, fever. We will obtain infectious labs. Vital signs are within acceptable limits other than fever and mild tachycardia. Patient be symptomatically treated with IV fluids, as well as Tylenol Motrin. Patient was in agreement this plan. EKG shows no signs of acute ischemia.Chest x-ray shows no signs of acute cardiopulmonary process. EKG shows no signs of acute ischemia. Patient's laboratory studies are remarkable for lactic acid that is within acceptable limits. Urinalysis unremarkable. Patient is COVID-positive. I did the patient at this time. Fevers improved. Due to her weakness which is improving as well as her febrile illness I did recommend admission for continued treatment of her fever as well as IV fluids. Patient was in agreement this plan. She will be empirically on a dose of Decadron for the COVID infection. I discussed the case with the admitting team, [facility]. Undiagnosed new problem with uncertain prognosis? @ -No Drug Therapy requiring intensive monitoring for toxicity (Heparin, Nitro, Insulin, Cardizem)? @ -No Were any procedures done? @ -No Diagnosis/symptom? @ -Weakness, COVID-19 infection Acute, or Chronic, or Acute on Chronic? @ -Acute Uncomplicated (without systemic symptoms) or Complicated (systemic symptoms)? @ -Complicated Side effects of treatment? @ -None Exacerbation, Progression, or Severe Exacerbation] @ -No Poses a threat to life or bodily function? @ -Yes - Lab Data Result diagrams: 02/14/24 20:29 02/14/24 20:29 Lab Results 02/14/24 02/14/24 02/14/24 Range/Units 20:29 20:29 20:29 WBC 8.1 (3.8-10.6) k/uL RBC 3.93 (3.80-5.40) m/uL Hgb 12.3 (11.4-16.0) gm/dL Hct 36.4 (34.0-46.0) % MCV 92.4 (80.0-100.0) fL MCH 31.2 (25.0-35.0) pg MCHC 33.7 (31.0-37.0) g/dL RDW 13.4 (11.5-15.5) % Plt Count 144 L (150-450) k/uL MPV 8.0 Neutrophils % 79 % Lymphocytes % 13 % Monocytes % 6 % Eosinophils % 2 % Basophils % 0 % Neutrophils # 6.4 (1.3-7.7) k/uL Lymphocytes # 1.0 (1.0-4.8) k/uL Monocytes # 0.5 (0-1.0) k/uL Eosinophils # 0.1 (0-0.7) k/uL Basophils # 0.0 (0-0.2) k/uL PT 10.7 (10.0-12.5) sec INR 1.0 (<1.2) APTT 24.6 (22.0-30.0) sec Sodium 140 (137-145) mmol/L Potassium 4.0 (3.5-5.1) mmol/L Chloride 109 H (98-107) mmol/L Carbon Dioxide 23 (22-30) mmol/L Anion Gap 8 mmol/L BUN 15 (7-17) mg/dL Creatinine 0.58 (0.52-1.04) mg/dL Est GFR (CKD-EPI)AfAm >90 (>60 ml/min/1.73 sqM) Est GFR (CKD-EPI)NonAf 87 (>60 ml/min/1.73 sqM) Glucose 118 H (74-99) mg/dL Plasma Lactic Acid Mohan (0.7-2.0) mmol/L Calcium 8.6 (8.4-10.2) mg/dL Magnesium 1.7 (1.6-2.3) mg/dL Total Bilirubin 0.5 (0.2-1.3) mg/dL AST 23 (14-36) U/L ALT 24 (4-34) U/L Alkaline Phosphatase 80 (38-126) U/L Total Protein 7.1 (6.3-8.2) g/dL Albumin 4.1 (3.5-5.0) g/dL Urine Color Urine Appearance (Clear) Urine pH (5.0-8.0) Ur Specific [place] (1.001-1.035) Urine Protein (Negative) Urine Glucose (UA) (Negative) Urine Ketones (Negative) Urine Blood (Negative) Urine Nitrite (Negative) Urine Bilirubin (Negative) Urine Urobilinogen (<2.0) mg/dL Ur Leukocyte Esterase (Negative) Urine RBC (0-5) /hpf Urine WBC (0-5) /hpf Ur Squamous Epith Cells (0-4) /hpf Urine Bacteria (None) /hpf Urine Mucus (None) /hpf Influenza Type A (PCR) (Not Detectd) Influenza Type B (PCR) (Not Detectd) RSV (PCR) (Not Detectd) SARS-CoV-2 (PCR) (Not Detectd) 02/14/24 02/14/24 02/14/24 Range/Units 20:29 20:29 21:44 WBC (3.8-10.6) k/uL RBC (3.80-5.40) m/uL Hgb (11.4-16.0) gm/dL Hct (34.0-46.0) % MCV (80.0-100.0) fL MCH (25.0-35.0) pg MCHC (31.0-37.0) g/dL RDW (11.5-15.5) % Plt Count (150-450) k/uL MPV Neutrophils % % Lymphocytes % % Monocytes % % Eosinophils % % Basophils % % Neutrophils # (1.3-7.7) k/uL Lymphocytes # (1.0-4.8) k/uL Monocytes # (0-1.0) k/uL Eosinophils # (0-0.7) k/uL Basophils # (0-0.2) k/uL PT (10.0-12.5) sec INR (<1.2) APTT (22.0-30.0) sec Sodium (137-145) mmol/L Potassium (3.5-5.1) mmol/L Chloride (98-107) mmol/L Carbon Dioxide (22-30) mmol/L Anion Gap mmol/L BUN (7-17) mg/dL Creatinine (0.52-1.04) mg/dL Est GFR (CKD-EPI)AfAm (>60 ml/min/1.73 sqM) Est GFR (CKD-EPI)NonAf (>60 ml/min/1.73 sqM) Glucose (74-99) mg/dL Plasma Lactic Acid Mohan 1.1 (0.7-2.0) mmol/L Calcium (8.4-10.2) mg/dL Magnesium (1.6-2.3) mg/dL Total Bilirubin (0.2-1.3) mg/dL AST (14-36) U/L ALT (4-34) U/L Alkaline Phosphatase (38-126) U/L Total Protein (6.3-8.2) g/dL Albumin (3.5-5.0) g/dL Urine Color Colorless Urine Appearance Clear (Clear) Urine pH 6.0 (5.0-8.0) Ur Specific [place] 1.011 (1.001-1.035) Urine Protein Negative (Negative) Urine Glucose (UA) Negative (Negative) Urine Ketones Negative (Negative) Urine Blood Negative (Negative) Urine Nitrite Positive H (Negative) Urine Bilirubin Negative (Negative) Urine Urobilinogen <2.0 (<2.0) mg/dL Ur Leukocyte Esterase Negative (Negative) Urine RBC <1 (0-5) /hpf Urine WBC 3 (0-5) /hpf Ur Squamous Epith Cells 1 (0-4) /hpf Urine Bacteria Rare H (None) /hpf Urine Mucus Rare H (None) /hpf Influenza Type A (PCR) Not Detected (Not Detectd) Influenza Type B (PCR) Not Detected (Not Detectd) RSV (PCR) Not Detected (Not Detectd) SARS-CoV-2 (PCR) Detected A (Not Detectd) - EKG Data -: EKG Interpreted by Me EKG Comments: 12-lead Electrocardiogram Interpretation Note EKG was reviewed and interpreted by myself. 12-lead ECG performed at 2028 is interpreted by me as revealing this tachycardia with incomplete right bundle branch block at a rate of 107 beats per minute. Left axis deviation. GA interval is 160 ms, QRS duration is 93 ms, QTc is 388 ms.. There were no ST or T wave abnormalities to suggest myocardial ischemia or injury. R wave progression across the precordium was delayed. By my interpretation this EKG is non-diagnostic for acute ischemia. Disposition Clinical Impression: COVID-19, Weakness Disposition: ADMITTED IP TO THIS [facility] Condition: Stable Referrals: None,Stated [Primary Care Provider] - 1-2 days Time of Disposition: 22:45
--- NOTE | 2024-02-14 22:31 | XR ---
EXAMINATION TYPE: XR chest 2V DATE OF EXAM: 02/14/2024 COMPARISON: None INDICATION: Stroke like symptoms TECHNIQUE: Frontal and lateral views of the chest are obtained. FINDINGS: The heart size is normal. The pulmonary vasculature is normal. The lungs are clear. IMPRESSION: 1. No acute pulmonary process.
[2024-02-14 22:38] LABS: Appearance,Urine Clear (Clear); Bacteria,Urine Rare /hpf; Bilirubin,Urine Negative (Negative); Blood,Urine Negative (Negative); Color,Urine Colorless; Glucose,Urine (UA) Negative (Negative); Ketones,Urine Negative (Negative); Leukocyte Esterase,Urine Negative (Negative); Mucus,Urine Rare /hpf; Nitrite,Urine Positive (Negative); Protein,Urine Negative (Negative); RBC,Urine <1 /hpf (0-5); Specific Gravity,Urine 1.011 (1.001-1.035); Squamous Epithelial Cell,Urine 1 /hpf (0-4); Urobilinogen,Urine <2.0 mg/dL (<2.0); WBC,Urine 3 /hpf (0-5)
[2024-02-14] MEDS ORDERED: NALOXONE 0.4 MG/ML 1 ML VIAL IV PRN (22:58)
[2024-02-14] MEDS ORDERED: ONDANSETRON 4 MG/2 ML VIAL IVP PRN (22:58)
[2024-02-14] MEDS ORDERED: ACETAMINOPHEN TAB 325 MG TAB PO PRN (22:58)
[2024-02-14] MEDS ORDERED: IBUPROFEN 400 MG TAB PO PRN (22:58)
[2024-02-14] MEDS: DEXAMETHASONE SOD PHOSPHATE 10 MG/ML 1 ML VIAL IVP STA (23:11)
[2024-02-15 02:11] VITALS: RESP 16
[2024-02-15 07:22] LABS: Basophils % (A) 0 %; Eosinophils % (A) 0 %; HCT 37.9 % (34.0-46.0); Lymphocytes % (A) 15 %; MCHC 31.7 g/dL (31.0-37.0); MCV 94.5 fL (80.0-100.0); Mean Platelet Volume 8.2; Monocytes # (A) 0.1 k/uL (0-1.0); Monocytes % (A) 2 %; Neutrophils % (A) 81 %; Platelet Count 160 k/uL (150-450); RBC 4.01 m/uL (3.80-5.40); RDW 13.5 % (11.5-15.5); WBC 6.2 k/uL (3.8-10.6)
[2024-02-15 07:46] VITALS: BP 124/64; PULSE 76; TEMP 97.4
[2024-02-15 08:10] LABS: African American GFR (CKD) >90 (>60 ml/min/1.73 sqM); Anion Gap 9 mmol/L; Blood Urea Nitrogen 13 mg/dL (7-17); Calcium 8.7 mg/dL (8.4-10.2); Carbon Dioxide 23 mmol/L (22-30); Chloride 110 mmol/L (98-107); Glucose 142 mg/dL (74-99); Non-African American GFR(CKD) >90 (>60 ml/min/1.73 sqM); Potassium 4.4 mmol/L (3.5-5.1); Sodium 142 mmol/L (137-145)
[2024-02-15] MEDS ORDERED: HEPARIN SODIUM,PORCINE 5,000 UNIT/ML 1 ML VIAL SQ SCH (09:00)
--- NOTE | 2024-02-15 10:10 | P.HPIM ---
History of Present Illness H&P Date: 02/15/24 This note will serve as the H&P along with the discharge summary. 83-year-old female with PMH of osteoarthritis presents the ED for fatigue and weakness. Patient reports rhinorrhea that started yesterday. She has been overly fatigued taking multiple throughout the day. She also reports progressive weakness in both of her legs with difficulty standing up which prompted her to come to the ED. In the ED she underwent extensive evaluation. BP 152/79, HR 103, T-max 102.1 Fahrenheit, RR 19, 93% on RA. CBC showed platelet count 144. Coag panel within normal limits. CMP chloride 109, glucose 118. Lactic acid 1.1. Magnesium 1.7. Urinalysis positive nitrite with 3 WBC. COVID-19 positive. Chest x-ray unremarkable. EKG sinus tachycardia. Patient was admitted for further management and workup. She was started on Decadron and normal saline at 130 mL per hour. She did not require any supplemental oxygen therefore Decadron was discontinued. She has no signs of dehydration, renal function within normal limits, no ketones seen on UA, IVF discontinued. She was afebrile since 8:29 PM on 02/13. Her tachycardia has also resolved. Patient was seen and examined on the morning of 02/14. She is ambulating to the washroom without any difficulties. She denied any slurred speech, confusion, changes in urination or bowel habits, any focal neurologic deficits. She lives with her and feels comfortable going home today. She is advised to take Tylenol as needed for fever and chills. She is advised to come back to the ED for worsening weakness, shortness of breath, fever not relieved with Tylenol. Patient verbalized understanding of the plan. Discharge diagnoses: COVID-19 Generalized weakness Abnormal urinalysis Osteoarthritis Resolved: Thrombocytopenia This complex discharge took 35 minutes to complete. Past Medical History Past Medical History: Osteoarthritis (OA) History of Any Multi-Drug Resistant Organisms: None Reported Past Surgical History: Back Surgery Past Anesthesia/Blood Transfusion Reactions: No Reported Reaction Past Psychological History: No Psychological Hx Reported Smoking Status: Former smoker Past Alcohol Use History: None Reported Additional Past Alcohol Use History / Comment(s): Quit smoking 25 yrs ago, smoked 4 -5 cigarettes daily, on and off for 10 yrs. Past Drug Use History: None Reported - Past Family History Sister(s) Family Medical History: Cancer Additional Family Medical History / Comment(s): Cervical Cancer. Medications and Allergies Home Medications Medication Instructions Recorded Confirmed Type Acetaminophen Tab [Tylenol] 650 mg PO Q6HR PRN tab 02/15/24 Rx Allergies Allergy/AdvReac Type Severity Reaction Status Date / Time No Known Allergies Allergy Verified 02/15/24 08:31 Physical Exam Vitals: Vital Signs Temp Pulse Pulse Resp BP BP Pulse Ox 02/15/24 08:00 76 16 02/15/24 07:00 97.4 F L 76 16 124/64 100 02/15/24 02:00 16 02/15/24 00:14 98.2 F 88 16 125/77 95 02/14/24 23:13 97 18 136/77 02/14/24 21:35 99.2 F 02/14/24 21:00 92 19 133/67 95 02/14/24 20:29 102.1 F H 103 H 19 152/79 93 L Intake and Output 02/14/24 02/15/24 02/15/24 22:59 06:59 14:59 Intake Total 240 Balance 240 Intake: Oral 240 Other: # Voids 3 Weight 77.111 kg 77.111 kg Results CBC & Chem 7: 02/15/24 06:44 02/15/24 06:44 Labs: Abnormal Lab Results - Last 24 Hours (Table) 02/14/24 02/14/24 02/14/24 Range/Units 20:29 20:29 20:29 Plt Count 144 L (150-450) k/uL Chloride 109 H (98-107) mmol/L Creatinine (0.52-1.04) mg/dL Glucose 118 H (74-99) mg/dL Urine Nitrite (Negative) Urine Bacteria (None) /hpf Urine Mucus (None) /hpf SARS-CoV-2 (PCR) Detected A (Not Detectd) 02/14/24 02/15/24 Range/Units 21:44 06:44 Plt Count (150-450) k/uL Chloride 110 H (98-107) mmol/L Creatinine 0.50 L (0.52-1.04) mg/dL Glucose 142 H (74-99) mg/dL Urine Nitrite Positive H (Negative) Urine Bacteria Rare H (None) /hpf Urine Mucus Rare H (None) /hpf SARS-CoV-2 (PCR) (Not Detectd) Thrombosis Risk Factor Assmnt - Choose All That Apply Any of the Below Risk Factors Present?: Yes Each Factor Represents 1 point: Obesity (BMI >25) Other Risk Factors: Yes Each Risk Factor Represents 3 Points: Age 75 years or older Other congenital or acquired thrombophilia - If yes, enter type in comment: No Thrombosis Risk Factor Assessment Total Risk Factor Score: 4 Thrombosis Risk Factor Assessment Level: Moderate Risk
== END 2024-02-15 11:00 | disposition home or self-care (01) ==
LOC: EC 20:25 → 6NMEDSUR 22:58
PROVIDERS: ADMIT Student in an Organized Health Care Education/Training Program; ATTEND Student in an Organized Health Care Education/Training Program
DX: U07.1 COVID-19 (principal); I45.10 Unspecified right bundle-branch block; R82.90 Unspecified abnormal findings in urine; M19.90 Unspecified osteoarthritis, unspecified site; D69.6 Thrombocytopenia, unspecified; E66.9 Obesity, unspecified; Z68.30 Body mass index [BMI] 30.0-30.9, adult; Z79.82 Long term (current) use of aspirin; Z11.59 Encounter for screening for other viral diseases; Z87.891 Personal history of nicotine dependence; R20.0 Anesthesia of skin
CPT/HCPCS: 96374; 99285; 36415; 93005; 80053; 80048; 83605; 83735; 85025 ×2; 85610; 85730; 81001; 87636; 71046; G0378 ×2; J1100

== ENCOUNTER → 2025-06-06 | Outpatient (CLI) | payer MEDICARE, OTHER ==
--- NOTE | 2025-06-06 17:38 | XR ---
EXAMINATION TYPE: XR foot complete RT DATE OF EXAM: 06/06/2025 10:48 AM COMPARISON: None. CLINICAL INDICATION: Female, 85 years old with history of [id number] RT FOOT PAIN, pain under metatarsoph alangeal joint spaces foot swelling TECHNIQUE: 3 view(s) obtained. FINDINGS: No acute fracture or dislocation evident. Large plantar calcaneal heel spur is present. Mild diffuse joint space narrowing is present. No acute fracture or dislocation evident. Soft tissues appear normal. IMPRESSION: 1. No acute osseous abnormality right foot. 2. Large plantar calcaneal heel spur [facility], Workstation: [facility], 06/06/2025 5:36 PM
== END | disposition home or self-care (01) ==
LOC: RADXRYALE 10:25
PROVIDERS: ATTEND Physician Assistant
DX: M77.31 Calcaneal spur, right foot (principal)